=== PATIENT | male | born 1960 | race Caucasian/White ===

== ENCOUNTER 2017-06-07 09:45 | Emergency (ER) | payer OTHER ==
[~2017-06-07] VITALS: Ht 182.9 cm; Wt 79.2 kg
[~2017-06-07 09:45] MED LIST: B12; FLVUNK; LPTUNK; NRNUNK; QUET1TAB30 PO; QUET1TAB34 PO; SERT-234 PO; [UNRECOGNIZED DRUG - CODE] PO; [UNRECOGNIZED DRUG - OTHER]; [UNRECOGNIZED DRUG - OTHER] PO
[2017-06-07 09:48] VITALS: Ht 182.9 cm; Wt 79.2 kg
[2017-06-07 10:31] LABS: BASO % 0.8 %; BASO ABS # 0.05 K/uL (0-0.2); EOS % 3.9 %; EOS ABS # 0.25 K/uL (0-0.5); HEMATOCRIT 40.2 % (42-52); HEMOGLOBIN 14.1 g/dL (14.0-18.0); IG# 0.01 K/uL (0.00-0.02); LYMPH % 33.2 %; LYMPH ABS # 2.13 K/uL (1.2-3.4); MEAN CORPUSCULAR HEMOGLOBIN 32.3 pg (25-34); MEAN CORPUSCULAR HGB CONC 35.1 g/dl (32-36); MEAN PLATELET VOLUME 8.7 fL (7.4-10.4); MONO % 6.6 %; MONO ABS # 0.42 K/uL (0.11-0.59); NEUT % 55.3 %; NEUT ABS # 3.55 K/uL (1.4-6.5); PLATELET COUNT 271 K/uL (130-400); RED CELL DISTRIBUTION WIDTH CV 13.6 % (11.5-14.5); RED CELL DISTRIBUTION WIDTH SD 45.4 fL (36.4-46.3); WHITE BLOOD COUNT 6.41 K/uL (4.8-10.8)
[2017-06-07] MEDS ORDERED: SIMV20TA2 PO (10:46)
[2017-06-07] MEDS ORDERED: LTHSR/300 PO (10:46)
[2017-06-07] MEDS ORDERED: AMLO-110 PO (10:46)
[2017-06-07] MEDS ORDERED: HYDR50CA PO (10:46)
[2017-06-07] MEDS ORDERED: MIRT15TA PO (10:46)
[2017-06-07] MEDS ORDERED: VALA1TAB31 PO (10:46)
[2017-06-07 10:50] LABS: ALBUMIN 4.2 gm/dl (3.4-5.0); CALCIUM 9.4 mg/dl (8.5-10.1); CREATININE 1.06 mg/dl (0.60-1.40); POTASSIUM 3.9 mmol/L (3.5-5.1)
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
[2017-06-07 18:38] VITALS: BP 122/88; PULSE 101; TEMP 36.7; O2SAT 97
== END 2017-06-07 18:39 ==
LOC: C.EDB 09:48 → C.EDA 18:39
DX: Z00.8 Encounter for other general examination (principal); F32.9 Major depressive disorder, single episode, unspecified; M54.6 Pain in thoracic spine; Z79.899 Other long term (current) drug therapy